=== PATIENT | male | born 1975 | race Caucasian/White ===

== ENCOUNTER 2017-06-21 16:46 | Emergency (ER) | payer OTHER ==
[~2017-06-21] VITALS: Ht 177.8 cm; Wt 99.8 kg
[~2017-06-21 16:46] MED LIST: AUGMENTIN 875 M1 TAB PO; CLARITIN10 MG PO; DAYPRO600 M1 PO; MOTRIN800 MG PO; PROVENTIL0.09 MG/AC IH; TRAMADOL HCL50 MG PO; VICO10300 PO; ZITHROMAX Z PA250 MG PO
[2017-06-21 18:04] LABS: BASO % 0.4 % (0.0-1.0); EOS # 0.4 10*3/uL (0.0-0.4); EOS % 5.5 % (1.0-4.0); HEMATOCRIT 44.5 % (42.0-52.0); HEMOGLOBIN 14.3 g/dl (14.0-18.0); LYMPH # 2.1 10*3/uL (1.3-4.4); LYMPH % 27.2 % (27.0-41.0); MEAN CELL VOLUME 88.3 fl (80.0-94.0); MEAN CORPUSCULAR HGB 28.4 pg (27.0-31.0); MEAN CORPUSCULAR HGB CONC 32.1 g/dl (33.0-37.0); MEAN PLATELET VOLUME 9.7 fl (9.6-12.3); MONO # 0.7 10*3/uL (0.1-1.0); MONO % 9.5 % (3.0-9.0); NEUT # 4.4 10*3/uL (2.3-7.9); NEUT % 57.1 % (47.0-73.0); PLATELET COUNT AUTOMATED 283 10*3/uL (130-400); RED BLOOD COUNT 5.04 10*6/uL (4.50-5.90); WHITE BLOOD COUNT 7.8 10*3/uL (4.8-10.8)
[2017-06-21 18:18] LABS: ALKALINE PHOSPHATASE 83 U/L (45-117); BUN 17 mg/dl (7-24); CHLORIDE 105 mmol/L (98-107); CREATININE 1.07 mg/dL (0.70-1.30); LIPASE 174 U/L (73-393); POTASSIUM 4.1 mmol/L (3.5-5.1); SGOT/AST 17 IU/L (3-35); SGPT/ALT 40 U/L (12-78); SODIUM 142 mmol/L (136-145); TOTAL PROTEIN 7.9 gm/dL (6.4-8.2)
[2017-06-21 18:36] LABS: BILIRUBIN NEGATIVE (NEGATIVE); BLOOD 2+ (NEGATIVE); CLARITY SL CLOUDY (CLEAR); COLOR YELLOW (YELLOW); GLUCOSE NEGATIVE (NEGATIVE); KETONE NEGATIVE (NEGATIVE); LEUKO ESTERASE NEGATIVE (NEGATIVE); NITRITE NEGATIVE (NEGATIVE); PH 5.5 (5.0-9.0); SPECIFIC GRAVITY 1.025 (1.005-1.030); UROBILINOGEN 0.2 E.U./dl (0.2-1.0)
[2017-06-21 19:03] LABS: BACTERIA 2+; EPITHELIAL CELLS 0-2; MUCOUS TRACE; WBC 0-2 wbc/hpf (0-5)
== END 2017-06-21 20:17 | disposition home or self-care (01) ==
LOC: ED 16:46
PROVIDERS: Physician Assistant
DX: K57.30 Diverticulosis of large intestine without perforation or abscess without bleeding (principal); R31.9 Hematuria, unspecified; R10.31 Right lower quadrant pain

== ENCOUNTER → 2018-05-23 | Outpatient (CLI) | payer OTHER ==
[~2018-05-23] MED LIST changes: +IBU800 MG PO
[2018-05-23 12:03] LABS: BILIRUBIN NEGATIVE (NEGATIVE); BLOOD TRACE-LYSED (NEGATIVE); CLARITY CLEAR (CLEAR); COLOR YELLOW (YELLOW); GLUCOSE NEGATIVE (NEGATIVE); KETONE NEGATIVE (NEGATIVE); LEUKO ESTERASE NEGATIVE (NEGATIVE); NITRITE NEGATIVE (NEGATIVE); SPECIFIC GRAVITY 1.015 (1.005-1.030); UROBILINOGEN 0.2 E.U./dl (0.2-1.0)
[2018-05-23 12:05] LABS: BASO % 0.3 % (0.0-1.0); EOS # 0.3 10*3/uL (0.0-0.4); EOS % 3.5 % (1.0-4.0); HEMATOCRIT 42.7 % (42.0-52.0); HEMOGLOBIN 13.8 g/dl (14.0-18.0); LYMPH # 2.2 10*3/uL (1.3-4.4); LYMPH % 30.6 % (27.0-41.0); MEAN CELL VOLUME 88.6 fl (80.0-94.0); MEAN CORPUSCULAR HGB 28.6 pg (27.0-31.0); MEAN CORPUSCULAR HGB CONC 32.3 g/dl (33.0-37.0); MONO # 0.6 10*3/uL (0.1-1.0); MONO % 9.1 % (3.0-9.0); NEUT % 56.4 % (47.0-73.0); PLATELET COUNT AUTOMATED 275 10*3/uL (130-400); RED BLOOD COUNT 4.82 10*6/uL (4.50-5.90); RED CELL DISTRI WIDTH 12.6 % (0-14.5); WHITE BLOOD COUNT 7.1 10*3/uL (4.8-10.8)
[2018-05-23 12:29] LABS: ALBUMIN 3.6 gm/dl (3.1-4.5); ALKALINE PHOSPHATASE 68 U/L (45-117); BUN 15 mg/dl (7-24); CHLORIDE 105 mmol/L (98-107); CREATININE 0.99 mg/dL (0.70-1.30); LDH 149 U/L (87-241); SGOT/AST 18 IU/L (3-35); SGPT/ALT 39 U/L (12-78); SODIUM 143 mmol/L (136-145); TOTAL PROTEIN 7.5 gm/dL (6.4-8.2)
[2018-05-23 12:31] LABS: BETA-HCG, TUMOR MARKER < 1.0 mIU/mL (<1)
== END | disposition home or self-care (01) ==
LOC: LAB 11:11
PROVIDERS: Urology
DX: N50.9 Disorder of male genital organs, unspecified (principal); R31.9 Hematuria, unspecified

== ENCOUNTER → 2018-05-30 | Outpatient (CLI) | payer OTHER | END | disposition home or self-care (01) | LOC: US 15:49 | DX: N43.3 Hydrocele, unspecified (principal) ==

== ENCOUNTER 2019-10-09 20:57 | Emergency (ER) | payer OTHER ==
[~2019-10-09] VITALS: Wt 101.2 kg
== END 2019-10-09 21:55 | disposition home or self-care (01) ==
LOC: ED 20:57
DX: H57.89 Other specified disorders of eye and adnexa (principal); L29.9 Pruritus, unspecified

== ENCOUNTER 2020-05-14 15:09 | Emergency (ER) | payer OTHER ==
[~2020-05-14] VITALS: Wt 101.2 kg
== END 2020-05-14 15:33 | disposition home or self-care (01) ==
LOC: ED 15:09
DX: U07.1 COVID-19 (principal); B34.9 Viral infection, unspecified

== ENCOUNTER 2020-07-20 17:00 | Emergency (ER) | payer OTHER ==
[~2020-07-20] VITALS: Ht 177.8 cm; Wt 101.2 kg
== END 2020-07-20 21:33 | disposition home or self-care (01) ==
LOC: ED 17:00
DX: S49.91XA Unspecified injury of right shoulder and upper arm, initial encounter (principal); M54.6 Pain in thoracic spine; R07.81 Pleurodynia; W00.0XXA Fall on same level due to ice and snow, initial encounter; Y93.89 Activity, other specified; Y92.89 Other specified places as the place of occurrence of the external cause; Y99.8 Other external cause status

== ENCOUNTER 2020-11-23 08:38 | Emergency (ER) | payer OTHER ==
[2020-11-23 09:08] LABS: BASO % 0.5 % (0.0-1.0); EOS # 0.3 10*3/uL (0.0-0.4); EOS % 5.3 % (1.0-4.0); HEMATOCRIT 40.5 % (42.0-52.0); LYMPH # 1.7 10*3/uL (1.3-4.4); LYMPH % 29.6 % (27.0-41.0); MEAN CELL VOLUME 87.9 fl (80.0-94.0); MEAN CORPUSCULAR HGB 28.2 pg (27.0-31.0); MEAN CORPUSCULAR HGB CONC 32.1 g/dl (33.0-37.0); MEAN PLATELET VOLUME 9.9 fl (9.6-12.3); MONO # 0.7 10*3/uL (0.1-1.0); MONO % 11.3 % (3.0-9.0); NEUT # 3.1 10*3/uL (2.3-7.9); NEUT % 53.1 % (47.0-73.0); PLATELET COUNT AUTOMATED 258 10*3/uL (130-400); RED BLOOD COUNT 4.61 10*6/uL (4.50-5.90); RED CELL DISTRI WIDTH 12.6 % (0-14.5); WHITE BLOOD COUNT 5.8 10*3/uL (4.8-10.8)
[2020-11-23 09:22] LABS: ALBUMIN 3.1 gm/dl (3.1-4.5); ALKALINE PHOSPHATASE 72 U/L (45-117); BUN 12 mg/dl (7-24); CHLORIDE 112 mmol/L (98-107); CREATININE 1.09 mg/dL (0.70-1.30); POTASSIUM 3.8 mmol/L (3.5-5.1); SGOT/AST 18 IU/L (3-35); SGPT/ALT 32 U/L (12-78); SODIUM 141 mmol/L (136-145); TOTAL PROTEIN 6.7 gm/dL (6.4-8.2)
[2020-11-23 09:27] LABS: TROPONIN I < 0.015 ng/ml (<0.045)
[2020-11-23] MEDS ORDERED: CYCLOBENZAPRINE10 MG PO (09:30)
== END 2020-11-23 09:40 | disposition home or self-care (01) ==
LOC: ED 08:38
PROVIDERS: Family Medicine
DX: M94.0 Chondrocostal junction syndrome [Tietze] (principal)

== ENCOUNTER → 2021-07-08 | Outpatient (CLI) | payer OTHER ==
[~2021-07-08] MED LIST changes: +CYCLOBENZAPRINE10 MG PO
[2021-07-08 13:15] LABS: HEMATOCRIT 42.3 % (42.0-52.0); MEAN CELL VOLUME 88.9 fl (80.0-94.0); MEAN CORPUSCULAR HGB 28.4 pg (27.0-31.0); MEAN CORPUSCULAR HGB CONC 31.9 g/dl (33.0-37.0); MEAN PLATELET VOLUME 10.5 fl (9.6-12.3); RED BLOOD COUNT 4.76 10*6/uL (4.50-5.90); RED CELL DISTRI WIDTH 12.7 % (0-14.5); WHITE BLOOD COUNT 6.8 10*3/uL (4.8-10.8)
[2021-07-08 13:31] LABS: ALBUMIN 3.8 gm/dl (3.1-4.5); ALKALINE PHOSPHATASE 69 U/L (45-117); BUN 18 mg/dl (7-24); CHLORIDE 109 mmol/L (98-107); CHOLESTEROL 146 mg/dL (<200); CREATININE 1.14 mg/dL (0.70-1.30); LDL CHOLESTEROL 80 mg/dL (9-159); POTASSIUM 4.4 mmol/L (3.5-5.1); SGOT/AST 23 IU/L (3-35); SGPT/ALT 31 U/L (12-78); SODIUM 142 mmol/L (136-145); TOTAL PROTEIN 7.5 gm/dL (6.4-8.2); TRIGLYCERIDES 162 mg/dl (<150)
== END | disposition home or self-care (01) ==
LOC: LAB 10:42 → US 11:00 → LAB 11:00
PROVIDERS: ATTEND Family Medicine
DX: Z00.00 Encounter for general adult medical examination without abnormal findings (principal); N43.2 Other hydrocele; N50.3 Cyst of epididymis

== ENCOUNTER 2021-09-19 16:40 | Emergency (ER) | payer OTHER ==
[2021-09-19] MEDS ORDERED: TYLENOL325 M1 PO (17:26)
[2021-09-19] MEDS ORDERED: NAPROXEN250 MG PO (17:27)
[2021-09-19] MEDS ORDERED: POLYTRIM 1000010 M1 OPH (17:27)
== END 2021-09-19 19:14 | disposition home or self-care (01) ==
LOC: ED 16:40
DX: H57.12 Ocular pain, left eye (principal)

== ENCOUNTER → 2022-09-02 | Outpatient (CLI) | payer SELFPAY ==
[~2022-09-02] MED LIST changes: +NAPROXEN250 MG PO; +POLYTRIM 1000010 M1 OPH; +TYLENOL325 M1 PO
[2022-09-02 11:04] LABS: HEMATOCRIT 43.6 % (42.0-52.0); MEAN CELL VOLUME 86.5 fl (80.0-94.0); MEAN CORPUSCULAR HGB 28.4 pg (27.0-31.0); MEAN CORPUSCULAR HGB CONC 32.8 g/dl (33.0-37.0); MEAN PLATELET VOLUME 10.5 fl (9.6-12.3); RED BLOOD COUNT 5.04 10*6/uL (4.50-5.90); RED CELL DISTRI WIDTH 12.8 % (0-14.5); WHITE BLOOD COUNT 7.8 10*3/uL (4.8-10.8)
[2022-09-02 11:24] LABS: ALKALINE PHOSPHATASE 67 U/L (46-116); BUN 13 mg/dl (9-23); CHLORIDE 107 mmol/L (98-107); CHOLESTEROL 148 mg/dL (<200); LDL CHOLESTEROL 80 mg/dL (9-159); SGPT/ALT 24 U/L (10-49); TOTAL PROTEIN 7.2 gm/dL (6.0-8.0); TRIGLYCERIDES 192 mg/dl (<150)
[2022-09-03 06:07] LABS: MUMPS ANTIBODIES, IGG 67.6 AU/mL (Immune >10.9); RUBEOLA AB IGG 96.4 AU/mL (Immune >16.4); VARICELLA-ZOSTER IGG 1075 index (Immune >165)
[2022-09-03 08:08] LABS: HEPATITIS B SURFACE AB Non Reactive (.); HEPATITIS B SURFACE AG Negative (Negative)
== END | disposition home or self-care (01) ==
LOC: LAB 10:14
PROVIDERS: ATTEND Family Medicine
DX: Z00.00 Encounter for general adult medical examination without abnormal findings (principal); E78.00 Pure hypercholesterolemia, unspecified

== ENCOUNTER 2024-06-07 12:40 | Emergency (ER) | payer OTHER ==
[~2024-06-07] VITALS: Ht 177.8 cm; Wt 98.9 kg
[2024-06-07] MEDS ORDERED: Polymyxin B Sulfate/Trimetho 10 ML BOT OPH ONE (13:15)
== END 2024-06-07 15:34 | disposition home or self-care (01) ==
LOC: ED 12:40
DX: H10.9 Unspecified conjunctivitis (principal); Z98.890 Other specified postprocedural states

== ENCOUNTER → 2024-09-27 | Outpatient (CLI) | payer OTHER ==
[2024-09-27 09:01] LABS: HEMATOCRIT 41.7 % (42.0-52.0); MEAN CELL VOLUME 88.2 fl (80.0-94.0); MEAN CORPUSCULAR HGB 28.5 pg (27.0-31.0); MEAN CORPUSCULAR HGB CONC 32.4 g/dl (33.0-37.0); MEAN PLATELET VOLUME 9.4 fl (9.6-12.3); RED BLOOD COUNT 4.73 10*6/uL (4.50-5.90)
[2024-09-27 09:30] LABS: ALKALINE PHOSPHATASE 63 U/L (46-116); BUN 16 mg/dl (9-23); CHLORIDE 105 mmol/L (98-107); CHOLESTEROL 158 mg/dL (<200); LDL CHOLESTEROL 91 mg/dL (9-159); POTASSIUM 4.2 mmol/L (3.4-5.1); SGPT/ALT 18 U/L (5-49); TOTAL PROTEIN 7.2 gm/dL (6.0-8.0); TRIGLYCERIDES 185 mg/dl (<150)
[2024-09-27 10:18] LABS: VITAMIN D, 25-HYDROXY 27.2 ng/mL (30-100)
== END | disposition home or self-care (01) ==
LOC: LAB 08:42
PROVIDERS: ATTEND Family Medicine
DX: Z00.00 Encounter for general adult medical examination without abnormal findings (principal); E78.00 Pure hypercholesterolemia, unspecified; E55.9 Vitamin D deficiency, unspecified; R53.83 Other fatigue; E74.9 Disorder of carbohydrate metabolism, unspecified; H10.89 Other conjunctivitis